=== PATIENT | male | born 1975 | race Caucasian/White ===

== ENCOUNTER 2019-09-25 13:27 | Emergency (ER) | payer MEDICAID, SELFPAY ==
[2019-09-25 13:29] VITALS: BP 125/94; PULSE 60; RESP 16; TEMP 36.9; O2SAT 97; BMI 38.2
--- NOTE | 2019-09-25 13:52 | ED.DCSUM_ITS ---
- ER Visit Summary Date of Service: 09/25/19 Chief Complaint: Back pain History of Present Illness: The patient is a 43 M with no primary care physician. He reports that 4 days ago he spent a great deal of time on his back working on a car radiator. He was in an awkward position. States that he felt fine when he did it, but he woke up the next morning with low back pain. He denies any other trauma. No fall, MVA or other change in activity. Does report that he is had similar problems with his back in the past. Patient complains of a sharp pain is 10 on 10 severity. Worsened by movement and straightening up. He is taken Motrin and Tylenol without relief. He denies any ration to his legs. No problems with his bowels or his bladder. No groin numbness. Physical Examination: Vitals: Stable. Afebrile. General: A&O x 3. NAD. Cardiovascular exam: Regular rate and rhythm, no murmur, rub or gallop. Respiratory exam: Clear to auscultation bilaterally. No wheezes or stridor. Abdominal exam: Soft, nontender, nondistended, normal bowel sounds. No peritoneal signs. Back: Diffuse moderate tenderness to palpation over the lumbar spine and the paraspinous musculature in the lumbar region. No point tenderness. Negative straight leg bilaterally. 5/5 DF, PF, EHL bilaterally. Normal sensation to light touch throughout. Extremity: No clubbing, cyanosis, or edema. Emergency Department Course and Treatment: An OARRS report was obtained which was negative. He was treated with Norflex and Toradol IM. He is given a dose of [place] p.o. He is resting more comfortably. Treatment Plan: Patient be discharged with Flexeril, naproxen, and [place]. Instructed to follow-up with Dr. Manuel Wesley in 1 week if not improving. Return to the emergency department for any worsening symptoms. Disposition: To home in improved and stable condition. Impression: 1. Low back pain, acute. This note was generated with [employer] software. It may contain incorrect words, spelling, and punctuation that were not noted in review of the chart prior to signing ED Disposition - Plan for ED Patient: Disposition: Home or Assisted Living Instructions: ED Spasm Back No Trauma Prescriptions: cycloBENZAPRine HCl [Flexeril] 10 mg PO TID PRN #20 tab PRN Reason: Muscle Spasm Prescription Printed Naproxen [Naprosyn] 500 mg PO BID #14 tab Prescription Printed Hydrocodone Bitart/Apap 5-325 [[place] 5MG-325MG] 1 tab PO Q6H PRN PRN 3 Days #10 tab PRN Reason: Pain Prescription Printed Referrals: Js Farias MD [STAFF PHYSICIAN] - 1 Week if not improving
[2019-09-25] MEDS: Orphenadrine 60 MG/2 ML Ampul IM (14:36)
[2019-09-25] MEDS: Ketorolac 60 MG/2 ML Vial IM (14:36)
[2019-09-25] MEDS: HYDROcodone Bitartrate/Apap 5/325 Tablet PO (14:36)
== END 2019-09-25 14:46 | disposition home or self-care (01) ==
LOC: ED 14:44
PROVIDERS: Emergency Provider Emergency Medicine
DX: M54.9 Dorsalgia, unspecified (principal); M54.5 Low back pain; R05 Cough; I10 Essential (primary) hypertension; F17.210 Nicotine dependence, cigarettes, uncomplicated
CPT/HCPCS: 96372; 99283

== ENCOUNTER 2019-12-08 19:17 | Emergency (ER) | payer MEDICAID, SELFPAY ==
[2019-12-08 19:18] VITALS: BP 156/78; PULSE 72; RESP 20; TEMP 36.6; O2SAT 97; BMI 38.5
[2019-12-08 19:55] VITALS: BP 128/74; PULSE 68; RESP 17; TEMP 36.6; O2SAT 95
--- NOTE | 2019-12-08 20:12 | RAD_ITS ---
STUDY: X-RAY CHEST REASON FOR EXAM: Male, 43 years old. Cough TECHNIQUE: Frontal view of the chest COMPARISON: None. FINDINGS: The lungs are clear. There are no pleural effusions. There is no pneumothorax. The heart is normal in size. The visualized osseous structures are within normal limits. RAD/Chest 1 View (Portable) IMPRESSION: No acute thoracic pathology. Electronically Signed: Frank oSrto, at 20:25 EDT Tel , Service support ,
[2019-12-08 20:30] LABS: Absolute Lymphocyte Count 2.49 X10^3/uL (0.83-4.51); Absolute Neutrophil Count 3.9 X10^3/uL (2.0-7.7); Basophil# 0.04 X10^3/uL; Basophil% 0.6 % (0-1); Eosinophil# 0.18 X10^3/uL; Eosinophils% 2.5 % (0-5); Hematocrit 40.7 % (40-54); Hemoglobin 14.3 g/dL (13.0-16.5); Lymphocyte # 2.49 X10^3/ul (4.0); Lymphocyte % 34.9 % (19-41); Mean Corp Hgb Conc 35.1 g/dL (32-36); Mean Corpuscular Hgb 32.6 pg (27.0-32.0); Mean Corpuscular Volume 92.9 fL (80-94); Mean Platelet Vol. 10.7 fl (6.2-12.0); Monocyte# 0.52 X10^3/uL; Monocyte% 7.3 % (0-10); NRBC Flagged by Analyzer 0 % (0-5); Neutrophil # 3.89 X10^3/uL (2.7-7.7); Neutrophil % 54.4 % (47-70); Platelet Count 193 K/mm3 (150-450); RBC Distribution Width CV 12.2 % (11.6-14.6); RBC Distribution Width SD 41.3 fl (35.1-43.9); Red Blood Count 4.38 M/mm3 (4.6-6.2); White Blood Count 7.1 K/mm3 (4.4-11.0)
[2019-12-08 20:31] LABS: AST(SGOT) 25 U/L (15-37); Alanine Aminotransfer ALT/SGPT 59 U/L (16-61); Albumin, Serum 3.4 g/dL (3.2-5.0); Alkaline Phosphatase 99 U/L (45-117); Anion Gap 5 (5-15); BUN 15 mg/dL (7-18); BUN/Creat Ratio 17.8 RATIO (10-20); Chloride 110 mmol/L (98-107); Creatinine, Serum 0.84 mg/dL (0.70-1.30); EST Glomerular Filtration Rate 105 mL/min (>60); Est Glom Filt Rate - Afr Amer 128 mL/min (>60); Estimated Creatinine Clearance 136.92 ml/min; Globulin 3.3 g/dL (2.2-4.2); Glucose 124 mg/dL (74-106); Potassium 3.7 mmol/L (3.5-5.1); Protein, Total 6.7 g/dL (6.4-8.2); Sodium Level 143 mmol/L (136-145)
[2019-12-08 20:38] LABS: Lactic Acid 0.7 mmol/L (0.4-1.9)
[2019-12-08 21:21] LABS: Probe Check PASS; Specimen Processing Control PASS
--- NOTE | 2019-12-08 21:32 | ED.VISSUMM ---
- ER Visit Summary Date of Service: 12/08/19 Chief Complaint: Shortness of breath and wheezing History of Present Illness: The patient is a 43 M presents with shortness of breath and wheezing that is been getting worse over the past 2 days. Patient states he feels wheezing in his chest. Patient states it is worse in the morning when he wakes up. Patient states nothing seems to improve it. Patient admits to subjective chills. Patient also admits to some rhinorrhea. Patient admits to a cough but denies any sputum production. Patient admits to general myalgias and arthralgias. Patient also admits to a headache. Patient states his stepdaughter tested positive for COVID recently. Physical Examination: Vital signs are stable. Patient is afebrile. Patient is in no acute distress. Oral mucosa is pink and moist. Neck is supple. Trachea is midline. There is no JVD noted. Heart was regular rate and rhythm. Lungs showed mild expiratory wheezing bilaterally. Abdomen is soft. Bowel sounds are normal. There is no tenderness. There is no rebound or guarding noted. Skin is warm dry. Cranial nerves II through XII are intact. There are no focal motor or sensory deficits noted. Extremities are intact. There is no calf tenderness or edema. Test Results: CBC and comprehensive metabolic profile were within normal limits. COVID test was obtained and was negative. Chest x-ray was obtained. There is no acute cardiopulmonary process. This was interpreted by the radiologist and reviewed by myself. Emergency Department Course and Treatment: Patient was given 4 puffs of an albuterol inhaler here. Patient was feeling better on reevaluation. Patient was instructed to use his inhaler as needed. Patient was instructed to follow-up with his primary care physician in 5 to 7 days. Patient understood and was agreeable with the plan. All questions were answered. Disposition: Discharge home Impression: Viral upper respiratory infection This note was generated with [employer] dictation software. It may contain incorrect words, spelling, and punctuation that were not noted in review of the chart prior to signing ED Disposition - Plan for ED Patient: Disposition: Home or Assisted Living Diagnosis: Viral upper respiratory infection Instructions: ED URI Viral Referrals: Js Farias MD [Primary Care Provider] - 5-7 Days
[2019-12-08 21:44] VITALS: BP 116/59; PULSE 74; RESP 22; O2SAT 94
== END 2019-12-08 21:45 | disposition home or self-care (01) ==
PROVIDERS: Emergency Provider Emergency Medicine; PCP Family Medicine
DX: J06.9 Acute upper respiratory infection, unspecified (principal); R06.2 Wheezing; I10 Essential (primary) hypertension; G47.33 Obstructive sleep apnea (adult) (pediatric); F17.210 Nicotine dependence, cigarettes, uncomplicated
CPT/HCPCS: 71045; 80053; 83605; 85025; 87635; 94799; 99284; U0003

== ENCOUNTER 2020-05-19 21:06 | Emergency (ER) | payer MEDICAID, SELFPAY ==
[2020-05-19 21:07] VITALS: BP 151/74; PULSE 82; RESP 16; TEMP 36.2; O2SAT 95; BMI 40.9
--- NOTE | 2020-05-19 21:41 | RAD_ITS ---
STUDY: X-RAY CHEST REASON FOR EXAM: Male, 44 years old. SOB, cough TECHNIQUE: 1 view COMPARISON: Prior chest radiograph from 12/08/2019 FINDINGS: The lungs are clear and expanded. There is no demonstrated pleural abnormality. Normal size heart. Normal mediastinum and roshni. Normal visualized pulmonary arteries. Normal visualized aortic arch and descending thoracic aorta. Normal visualized thoracic spine. Normal visualized ribs, clavicles, and shoulders. There is no demonstrated abnormality of the visualized soft tissue structures of the upper abdomen. RAD/Chest 1 View IMPRESSION: No acute cardiopulmonary findings or changes. Negative for new consolidation, focal atelectasis, cardiomegaly or pleural effusion. Electronically Signed: Kaylynn Soto MD at 21:59 EST , Service support ,
--- NOTE | 2020-05-19 21:54 | ED.VIS.GEN ---
History of Present Illness Chief Complaint: Headache Narrative: Patient presents with cough congestion, some difficulty breathing which she attributes to asthma he has myalgias and a headache, and his just tested positive for Covid. There is no fevers there is no loss of taste or smell. There is no nausea vomiting or abdominal pain no urinary symptoms. There is no neck pain or stiffness. He has no vision changes or neurological symptoms. Review of systems: All systems negative except as indicated General: Denies: Fever Eyes: Denies: Visual changes - bilaterally ENT: Denies: Rhinorrhea, Sore throat Cardiovascular: Denies: Chest pain Respiratory: Dyspnea with nonproductive cough and wheezing Gastrointestinal: Denies: Abdominal pain, Nausea, Vomiting Genitourinary: Denies: Dysuria Musculoskeletal: Myalgias Skin: Denies: Rash Neurological: Denies: He does have some headache, there is no focal weakness there is no vision changes. There is no paresthesias. Psych: Reports: negative Hematologic: Denies: Easy bruising, Easy bleeding Physical exam General: Well nourished, Well developed, he appears relatively comfortable in the bed. Head: Normocephalic, Atraumatic Eyes: Conjunctiva not pale ENT: Moist mucous membranes Neck: Supple, Nontender, No lymphadenopathy Cardiovascular: Regular rate, Regular rhythm Respiratory: No distress, he is speaking in full sentences he has no retractions he is not tachypneic. He does however have an expiratory wheezing. Abdomen: Soft, Nontender, Nondistended Back: Nontender, Normal Inspection. Negative for: CVA tenderness Extremities: Nontender, No edema Skin: Normal color, No rash Neurological: Alert, Normal Strength, Normal Sensation Psychological: Normal affect Past Medical History - Allergies and Home Meds Allergies/Adverse Reactions: Allergies No Known Allergies Allergy (Verified 05/19/20 21:09) Primary Care Physician: Js Farias MD [Primary Care Provider] - Past Medical History: - - Asthma Smoking Status: Former smoker Physical Exam Vital Signs/Narrative: Vital Signs Temp Pulse Resp BP Pulse Ox 05/19/20 21:07 97.2 F L 82 16 151/74 H 95 Diagnostic/Tx/Re-eval Chest X-Ray - ED: 1 View, Read by ED Physician, Normal, Heart, Lungs - Medical Decision Making Patient has an unremarkable x-ray. I gave him an inhaler. He appears well I told him that while he is waiting for the Covid test he needs to quarantine. ED Disposition - Plan for ED Patient: Disposition: Home or Assisted Living Diagnosis: COVID-19 virus IgG antibody test result unknown Instructions: Coronavirus Disease 2019 (COVID-19): Overview, Coronavirus Disease 2019 (COVID-19): Prevention Referrals: Js Farias MD [Primary Care Provider] - 3-5 Days
== END 2020-05-19 22:51 | disposition home or self-care (01) ==
PROVIDERS: Emergency Provider Emergency Medicine; PCP Family Medicine
DX: Z11.52 Encounter for screening for COVID-19 (principal); Z87.891 Personal history of nicotine dependence; J45.909 Unspecified asthma, uncomplicated
CPT/HCPCS: 71045; 87635; 99282; U0005; U0003

== ENCOUNTER 2020-09-14 18:35 | Emergency (ER) | payer MEDICAID, SELFPAY ==
[2020-09-14 18:37] VITALS: BP 155/81; PULSE 66; RESP 15; TEMP 36.2; O2SAT 98; BMI 39.1
[2020-09-14 20:24] LABS: Bacteria 0 SEEN /hpf (None Seen); Mucous, Urine 0 SEEN /hpf (<or=2+); Red Blood Cells-Urine 0 SEEN /hpf (0-5)
[2020-09-14] MEDS: Morphine 4 MG/ML Syringe IV (20:24)
[2020-09-14] MEDS: 0.9% Normal Saline 1,000 ML 1000 ML IV (20:24)
[2020-09-14] MEDS: Ondansetron 4 MG/2 ML Vial IV (20:24)
[2020-09-14 20:37] LABS: Absolute Neutrophil Count 7.1 X10^3/uL (2.0-7.7); Basophil# 0.06 X10^3/uL; Basophil% 0.6 % (0-1); Eosinophil# 0.17 X10^3/uL; Eosinophils% 1.6 % (0-5); Hematocrit 46.3 % (40-54); Lymphocyte % 24.4 % (19-41); Mean Corp Hgb Conc 34.6 g/dL (32-36); Mean Corpuscular Hgb 32.4 pg (27.0-32.0); Mean Corpuscular Volume 93.7 fL (80-94); Monocyte% 6.6 % (0-10); NRBC Flagged by Analyzer 0 % (0-5); Neutrophil # 7.06 X10^3/uL (2.7-7.7); Neutrophil % 66.3 % (47-70); Platelet Count 243 K/mm3 (150-450); RBC Distribution Width CV 12.6 % (11.6-14.6); RBC Distribution Width SD 43.4 fl (35.1-43.9); Red Blood Count 4.94 M/mm3 (4.6-6.2); White Blood Count 10.6 K/mm3 (4.4-11.0)
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
[2020-09-14 20:43] LABS: Color, Urine Yellow (Yellow); Glucose, Dipstick Normal (Normal); Ketone-Dipstick Negative (Negative); Leukocyte Esterase-Dipstick Negative /ul (Negative); Nitrite-Dipstick Negative (Negative); Occult Blood-Urine Negative /ul (Negative); Protein-Dipstick Negative (Negative); Urine Bilirubin Dipstick Negative (Negative); Urine Clarity Clear (Clear); Urine Urobilinogen Normal (Normal); Urine pH 6.5 (5.0 - 8.0)
[2020-09-14 20:49] LABS: Squamous Epithelial Cells - UA 0-5 SEEN /hpf (0-5); White Blood Cells 0-5 SEEN /hpf (0-5)
[2020-09-14 20:59] LABS: ALB/GLOB Ratio 1.1 RATIO (0.9-2.4); AST(SGOT) 24 U/L (15-37); Alanine Aminotransfer ALT/SGPT 51 U/L (16-61); Albumin, Serum 4.1 g/dL (3.2-5.0); Alkaline Phosphatase 114 U/L (45-117); Anion Gap 4 (5-15); BUN 10 mg/dL (7-18); Calcium,Total 9.1 mg/dL (8.5-10.1); Chloride 104 mmol/L (98-107); EST Glomerular Filtration Rate 87 mL/min (>60); Est Glom Filt Rate - Afr Amer 105 mL/min (>60); Estimated Creatinine Clearance 110.74 ml/min; Globulin 3.8 g/dL (2.2-4.2); Glucose 93 mg/dL (74-106); Potassium 3.8 mmol/L (3.5-5.1); Protein, Total 7.9 g/dL (6.4-8.2); Sodium Level 137 mmol/L (136-145)
--- NOTE | 2020-09-14 21:52 | EDS_ITS ---
HPI History of Present Illness Chief Complaint: Back Informant: patient Onset/Context/Timing Onset: Days (4) Context: Gradual Onset Injury: lifting Timing: Continuous Quality: Aching Location: Lumbar Worsened by: improves with Movement Relieved by: Nothing Associated Symptoms Associated Symptoms: Abdominal Pain; Negative for Numbness, Tingling, Radiation to Right Leg, Fever, Dysuria, Unable to Ambulate, Unable to Transfer, Urinary Retention, Urinary Incontinence, Constipation and Fecal Incontinence Narrative Narrative: Patient presents with back pain that has been getting worse over the past 4 days. Patient states he was doing some lifting of logs. Patient states he has a history of prior back injury. Patient states that his pain is gradu ally getting worse. Patient states that today he had some pain in his left flank area that radiated to his left testicle. Patient states this was worse with urination. Patient denies any nausea or vomiting. Patient denies any dysuria or hematuria. Patient denies any urinary or stool incontinence. Patient denies any saddle anesthesia. PFSH PFSH Medical History Anxiety Chronic pain CPAP (continuous positive airway pressure) dependence Depression Herniated disc Hypertension Seizures Smoker Home Medications gabapentin 800 mg PO TIDCM 12/08/19 [History Last Taken Unknown] lisinopril 5 mg PO DAILY 12/08/19 [History Last Taken Unknown] phenytoin sodium extended 100 mg PO TID 12/08/19 [History Last Taken Unknown] hydrocodone-acetaminophen 1 tab PO Q6H PRN PRN 3 Days #10 tablet 09/14/20 [Rx Last Taken Unknown] Allergy/AdvReac Type Severity Reaction Status Date / Time No Known Allergies Allergy Verified 09/14/20 18:40 Surgical History History of colonoscopy Social History Smoking Status: Former smoker ROS ROS ED Constitutional Constitutional ED: Denies chills or fever(s) Eyes Eyes: Denies blurry vision or change in vision ENT ENT ED: Denies rhinorrhea or sore throat Cardiovascular Cardiovascular: Denies chest pain or palpitations Respiratory/Chest Respiratory/Chest: Denies dyspnea or sputum Gastrointestinal Gastrointestinal: Denies nausea or vomiting Genitourinary Genitourinary ED: Denies dysuria or hematuria Musculoskeletal Musculoskeletal: Reports back pain; Denies neck pain Integumentary Denies abscess or rash Neurologic Neurologic: Denies headache(s) or weakness Allergic/Immunologic Allergic/Immunologic ED: Denies mouth swelling or urticaria EXAM Physical Exam Const Vital Signs: 09/14/20 18:37 Temperature 97.1 F L Temperature Source Temporal Pulse Rate 66 Respiratory Rate 15 Blood Pressure 155/81 H Blood Pressure Mean 105 Pulse Ox 98 Oxygen Delivery Method Room Air Positive well nourished, well developed and obese General Appearance ED: well developed Nutritional Appearance: obese Resp normal respiratory effort and clear to auscultation bilaterally Cardio regular rate and regular rhythm GI normal to inspection, nondistended, normoactive bowel sounds and soft to palpation Palpation: tender other (There is some mild left inguinal tenderness. There is no hernia noted.) Back/Spine Back/Spine Narrative: There is tenderness over the left flank, lower thoracic, and lumbar paraspinal muscles. There is no midline tenderness. There is no bony crepitance or step-off. Range of motion was limited in all motion secondary to pain. General Back: CVA tenderness left Thoracic Spine / Upper Back: paraspinal muscle tenderness left T10, T11 and T12 Lumbar Spine / Lower Back: ROM limited Neuro oriented x3 and no sensory deficits noted Sensorium / Orientation: alert Motor Exam: strength 5/5 throughout Deep Tendon Reflexes: Rt Patellar (L4): 1+, Lt Patellar (L4): 1+, Rt Ankle (S1): 1+ and Lt Ankle (S1): 1+ Deep Tendon Reflexes Back: Rt Patellar (L4): 1+, Lt Patellar (L4): 1+, Rt Ankle (S1): 1+ and Lt Ankle (S1): 1+ Psych mental status grossly normal MDM MDM MDM Narrative Medical decision making narrative: Patient was given morphine and Zofran here. Patient was given IV fluids. CBC and comprehensive metabolic profile within normal limits. Urinalysis was normal. CT scan of the abdomen and pelvis was obtained. There is no acute intra-abdominal pathology noted. Patient was advised of his findings. Patient was given a prescription for a short course of [place]. Patient was instructed use ice to the area. Patient was instructed to follow-up with his primary care physician in 5 to 7 days. Patient understood and was agreeable with the plan. All questions were answered. Lab Data Attestation: I reviewed the patient's lab results. Labs: Laboratory Results - last 24 hr 09/14/20 09/14/20 09/14/20 20:16 20:16 20:16 WBC 10.6 RBC 4.94 Hgb 16.0 Hct 46.3 MCV 93.7 MCH 32.4 H MCHC 34.6 RDW Std Deviation 43.4 RDW Coeff of [place] 12.6 Plt Count 243 MPV 10.0 Immature Gran % (Auto) 0.500 Neut % (Auto) 66.3 Lymph % (Auto) 24.4 [place] % (Auto) 6.6 Eos % (Auto) 1.6 Baso % (Auto) 0.6 Absolute Neuts (auto) 7.1 Absolute Lymphs (auto) 2.60 Nucleated RBC % 0 Sodium 137 Potassium 3.8 Chloride 104 Carbon Dioxide 29.0 Anion Gap 4 L BUN 10 Creatinine 1.00 Estim Creat Clear Calc 110.74 Est GFR (MDRD) Af Amer 105 Est GFR (MDRD) Non-Af 87 BUN/Creatinine Ratio 10.0 Glucose 93 Calcium 9.1 Total Bilirubin 0.30 AST 24 ALT 51 Alkaline Phosphatase 114 Total Protein 7.9 Albumin 4.1 Globulin 3.8 Albumin/Globulin Ratio 1.1 Urine Color Yellow Urine Clarity Clear Urine pH 6.5 Ur Specific [place] 1.010 Urine Protein Negative Urine Glucose (UA) Normal Urine Ketones Negative Urine Occult Blood Negative Urine Nitrite Negative Urine Bilirubin Negative Urine Urobilinogen Normal Ur Leukocyte Esterase Negative Urine RBC 0 SEEN Urine WBC 0-5 SEEN Ur Squamous Epith Cells 0-5 SEEN Urine Bacteria 0 SEEN Urine Mucus 0 SEEN Radiography Diagnostic Testing: Radiology Impression Abdomen/Pelvis CT 09/14/20 20:39 IMPRESSION: No definite acute or significant abnormality seen. Electronically Signed: Denver Garrett MD at 21:07 EDT , Service support , Discharge Plan Triage Chief Complaint: Back ED Provider: Eddie Levin Dx/Rx/DC Orders Clinical Impression: Acute low back pain Instructions: ED Back Exercises, Lumbar, ED Back Pain (Acute or Chronic), ED Back Sprain/Strain Prescriptions: New hydrocodone-acetaminophen [hydrocodone-acetaminophen] 1 TABLET tablet 1 tab PO Q6H PRN PRN (Reason: Pain) 3 Days Qty: 10 RF: 0 No Action phenytoin sodium extended 100 MG capsule 100 mg PO TID RF: 0 gabapentin 800 MG tablet 800 mg PO TIDCM RF: 0 lisinopril 5 MG tablet 5 mg PO DAILY RF: 0 Primary Care Provider: Js Farias Referrals: Js Farias MD [Primary Care Provider] - 3-5 Days Disposition Disposition: Home, self care
[2020-09-14 22:08] VITALS: BP 152/99; PULSE 72; RESP 14; O2SAT 98
[2020-09-14 22:24] VITALS: PULSE 68; RESP 16; O2SAT 99
== END 2020-09-14 22:25 | disposition home or self-care (01) ==
PROVIDERS: Emergency Provider Emergency Medicine; PCP Family Medicine
DX: M54.5 Low back pain (principal); E66.9 Obesity, unspecified; Z87.891 Personal history of nicotine dependence
CPT/HCPCS: 74176; 80053; 81001; 85025; 96374; 96375; 99283; J7030; A4216; J2405

== ENCOUNTER 2021-06-21 10:12 | Emergency (ER) | payer MEDICAID, SELFPAY ==
[2021-06-21 10:13] VITALS: BP 178/78; PULSE 89; RESP 18; TEMP 36.6; O2SAT 98; BMI 40.6
--- NOTE | 2021-06-21 10:34 | EKG12_ITS ---
Test Reason : DIZZINESS Blood Pressure : / mmHG Vent. Rate : 081 BPM Atrial Rate : 081 BPM P-R Int : 180 ms QRS Dur : 102 ms QT Int : 342 ms P-R-T Axes : 031 058 025 degrees QTc Int : 397 ms Normal sinus rhythm Nonspecific T wave abnormality Abnormal ECG Confirmed by DANTE GOODWIN, MARCELL ([id number]), photo editor TOMMIE ADKINS ([id number]) on 06/22/2021 9:48:54 AM Referred By: Confirmed By:MARCELL HOWELL MD
--- NOTE | 2021-06-21 10:35 | CT_ITS ---
STUDY: CT ABDOMEN AND PELVIS WITH CONTRAST REASON FOR EXAM: Male, 45 years old. Abdominal pain RADIATION DOSAGE (If Supplied By Facility): CTDIvol = ( 20.12 ) mGy, DLP = ( 1403.39 ) mGycm TECHNIQUE: Transaxial images were obtained from the dome of the diaphragm to the symphysis pubis without oral contrast. IV 100mL Isovue-[id number] was administered. Sagittal and coronal images were reconstructed. Individualized dose optimization techniques were used for this CT. COMPARISON: Comparison is made with prior study dated 09/14/2020. FINDINGS: The visualized lung bases are unremarkable. The visualized portions of the heart are within normal limits. Normal liver. Normal gallbladder and extrahepatic biliary system. There are multiple benign calcified granulomata of the spleen. Mild splenomegaly. Normal pancreas. Normal bilateral adrenal glands. Normal right kidney. Normal left kidney. Normal visualized stomach. Normal small intestine. There are scattered colonic diverticula consistent with diverticulosis. The appendix is visualized and appears normal. Normal abdominal aorta. Normal inferior vena cava. Normal retroperitoneum. Distended urinary bladder. The prostate measures 5.4 size by 4.1 cm. There is a right-sided inguinal hernia containing adipose tissue. Normal osseous structures. CT/Abdomen/Pelvis W IV Cont ONLY IMPRESSION: Mild degree of splenomegaly. Distended urinary bladder. Small right-sided inguinal hernia containing fat. Electronically Signed: Reinaldo Myers MD at 12:01 [facility] ,
--- NOTE | 2021-06-21 10:39 | NURSING ---
NO OLD EKGS
--- NOTE | 2021-06-21 10:42 | RAD_ITS ---
STUDY: X-RAY CHEST REASON FOR EXAM: Male, 45 years old. near syncope TECHNIQUE: Single AP portable view of the chest. COMPARISON: Comparison is made with prior study dated 05/19/2020. FINDINGS: EKG electrodes are seen. The lungs are clear and expanded. There is no demonstrated pleural abnormality. Normal size heart. Normal mediastinum and roshni. Normal visualized pulmonary arteries. Normal visualized aortic arch and descending thoracic aorta. Normal visualized thoracic spine. Normal visualized ribs, clavicles, and shoulders. There is no demonstrated abnormality of the visualized soft tissue structures of the upper abdomen. RAD/Chest 1 View (Portable) IMPRESSION: Normal x-ray examination of the chest. Electronically Signed: Reinaldo Myers MD at 11:23 EST ,
--- NOTE | 2021-06-21 10:43 | ED.VIS.GI ---
HPI HPI - GI History of Present Illness Chief Complaint: Dizziness Narrative Narrative: 45-year-old male presenting with multiple complaints. Patient states that since Saturday he has had worsening abdominal pain intermittently. He states with food he feels like he is bloating. This does resolve on its own. He has had this for 2 months and states that he saw his primary care physician who put him on some pill and that he does not remember the name of it. He states he does take this pill however. Patient reports that since Saturday with the worsening abdominal pain he has had a fever of 101 on Saturday. He does not report a cough but does report generalized malaise, and body aches with chills. Patient reports that he has been at work for the last couple of days and notes today he had to leave early because he felt like his muscles were cramping. He states he drinks 2 bottles of water per day usually. He reports that he is having diarrhea which is not black or bloody which has been going on for the last 2 days. He states he is not vomiting. He states that his urine is very dark. PFSH PFSH Medical History Anxiety Chronic pain CPAP (continuous positive airway pressure) dependence Depression Herniated disc Hypertension Seizures Smoker Home Medications gabapentin 800 mg PO TIDCM 12/08/19 [History Last Taken Unknown] lisinopril 5 mg PO DAILY 12/08/19 [History Last Taken Unknown] phenytoin sodium extended 100 mg PO TID 12/08/19 [History Last Taken Unknown] hydrocodone-acetaminophen 1 tab PO Q6H PRN PRN 3 Days #10 tablet 09/14/20 [Rx Last Taken Unknown] ondansetron HCl 4 mg PO Q8H PRN #14 tab 06/21/21 [Rx Last Taken Unknown] Allergy/AdvReac Type Severity Reaction Status Date / Time No Known Allergies Allergy Verified 06/21/21 10:16 Surgical History History of colonoscopy Social History Smoking Status: Current every day smoker tobacco type: cigarettes ROS ROS ED Constitutional Constitutional ED: Reports chills and fever(s); Denies sweats ENT ENT ED: Denies rhinorrhea or sore throat Cardiovascular Cardiovascular: Reports other Details: Near syncope ; Denies chest pain or palpitations Respiratory/Chest Respiratory/Chest: Denies cough or dyspnea Gastrointestinal Gastrointestinal: Reports abdominal pain and diarrhea; Denies nausea or vomiting Genitourinary Genitourinary ED: Denies dysuria or hematuria Musculoskeletal Musculoskeletal: Reports myalgias; Denies arthralgias or neck pain Integumentary Denies abscess, Abrasions or rash Neurologic Neurologic: Reports headache(s); Denies paresthesias or weakness EXAM Physical Exam Const Vital Signs: 06/21/21 10:13 06/21/21 10:49 06/21/21 10:51 Temperature 97.9 F Temperature Source Temporal Pulse Rate 89 79 Respiratory Rate 18 Respiratory Effort Normal Non-Labored Respiratory Pattern Normal Blood Pressure 178/78 H Blood Pressure Mean 111 Pulse Ox 98 Oxygen Delivery Method Room Air 06/21/21 12:01 06/21/21 14:00 Temperature 102.3 F H 100.6 F H Temperature Source Temporal Pulse Rate 83 Respiratory Rate 22 H Respiratory Effort Respiratory Pattern Blood Pressure 134/60 H Blood Pressure Mean 84 Pulse Ox 96 Oxygen Delivery Method Room Air Positive well nourished and obese General Appearance ED: NAD; Negative for pallor Nutritional Appearance: obese HEENT Reports moist mucous membranes normocephalic and atraumatic Eyes PERRL and EOMs intact bilaterally General Eye ED: Negative for pale conjunctiva or scleral icterus Resp normal respiratory effort and clear to auscultation bilaterally GI non-distended Auscultation: normoactive bowel sounds Palpation: soft Back/Spine no CVA tenderness Extremity full ROM General Extremety ED: Negative for edema or tenderness General Extremity: Negative for edema Neuro CN's II-XII intact bilaterally and no sensory deficits noted Sensorium / Orientation: alert, oriented to person, oriented to place and oriented to time Motor Exam: strength 5/5 throughout Psych mental status grossly normal and thought process normal Skin General Skin Exam: Negative for jaundice or pallor MDM MDM MDM Narrative Medical decision making narrative: Patient presenting with multiple complaints. He states he is having intermittent abdominal pain as well as diarrhea. This is worse since Saturday but he reports that he has had this for 2 months. His abdominal exam is benign but he reports that his abdomen is has generalized tenderness. He was given morphine and Zofran for this. In addition to this he is also stating that he is lightheaded and near syncopal and complaining of body cramps. I obtained an EKG which on my interpretation shows a normal sinus rhythm with a ventricular rate of 81 bpm without sign of ischemic change or dysrhythmia. Chest x-ray my interpretation shows no acute cardiopulmonary process and the radiologist does agree. CBC is within normal limits. CMP shows a mild elevation and ALT at 159, AST 82, alkaline phosphatase 126. Bilirubin is normal. Renal function and electrolytes are normal with exception of a sodium of 131. Patient was given a liter of IV fluids. Urinalysis is negative for infection. Rapid Covid testing is also negative. Patient developed a fever in the ER and I did give him a gram of Tylenol. His fever has subsided. CT of the abdomen pelvis is obtained which shows no acute abdominal process. CT of the brain was performed at the request of the patient because he states he feels confused. This is also negative. Did do a Covid PCR since patient developed a fever with a negative work-up thus far. He was pending on patient discharge. He will await the results at home. He is given Zofran for home for nausea. He is counseled on fever control. He was given return precautions. Patient's testing did come back negative for Covid after he was discharged. Impression: 1. Viral syndrome 2. Headache 3. Abdominal pain 4. Lightheadedness 5. Diarrhea Lab Data Attestation: I reviewed the patient's lab results. Labs: Laboratory Results - last 24 hr 06/21/21 06/21/21 06/21/21 10:45 10:45 11:05 WBC 7.1 RBC 4.17 L Hgb 13.9 Hct 37.6 L MCV 90.2 MCH 33.3 H MCHC 37.0 H RDW Std Deviation 39.8 RDW Coeff of Olivia 12.3 Plt Count 177 MPV 10.1 Immature Gran % (Auto) 0.700 Neut % (Auto) 77.4 H Lymph % (Auto) 14.4 L Wells % (Auto) 7.2 Eos % (Auto) 0.0 Baso % (Auto) 0.3 Absolute Neuts (auto) 5.5 Absolute Lymphs (auto) 1.02 Nucleated RBC % 0 Sodium 131 L Potassium 3.5 Chloride 99 Carbon Dioxide 27.0 Anion Gap 5 BUN 14 Creatinine 1.09 Estim Creat Clear Calc 97.74 Est GFR (MDRD) Af Amer 94 Est GFR (MDRD) Non-Af 78 BUN/Creatinine Ratio 12.8 Glucose 106 Calcium 8.3 L Total Bilirubin 0.70 AST 82 H ALT 159 H Alkaline Phosphatase 126 H Troponin I High Sens 5 Total Protein 7.4 Albumin 3.8 Globulin 3.6 Albumin/Globulin Ratio 1.1 Lipase 85 Urine Color Yellow Urine Clarity Clear Urine pH 5.0 Ur Specific [place] 1.010 Urine Protein Negative Urine Glucose (UA) Normal Urine Ketones Negative Urine Occult Blood Negative Urine Nitrite Negative Urine Bilirubin Negative Urine Urobilinogen Normal Ur Leukocyte Esterase Negative Urine RBC 0 SEEN Urine WBC 0-5 SEEN Ur Squamous Epith Cells 0-5 SEEN Urine Bacteria RARE Urine Mucus 0 SEEN COVID-19 (JERRY) 06/21/21 12:50 WBC RBC Hgb Hct MCV MCH MCHC RDW Std Deviation RDW Coeff of Olivia Plt Count MPV Immature Gran % (Auto) Neut % (Auto) Lymph % (Auto) Wells % (Auto) Eos % (Auto) Baso % (Auto) Absolute Neuts (auto) Absolute Lymphs (auto) Nucleated RBC % Sodium Potassium Chloride Carbon Dioxide Anion Gap BUN Creatinine Estim Creat Clear Calc Est GFR (MDRD) Af Amer Est GFR (MDRD) Non-Af BUN/Creatinine Ratio Glucose Calcium Total Bilirubin AST ALT Alkaline Phosphatase Troponin I High Sens Total Protein Albumin Globulin Albumin/Globulin Ratio Lipase Urine Color Urine Clarity Urine pH Ur Specific [place] Urine Protein Urine Glucose (UA) Urine Ketones Urine Occult Blood Urine Nitrite Urine Bilirubin Urine Urobilinogen Ur Leukocyte Esterase Urine RBC Urine WBC Ur Squamous Epith Cells Urine Bacteria Urine Mucus COVID-19 (JERRY) Not Detected Radiography Diagnostic Testing: Clinical Impression(s) from Imaging Studies Abdomen/Pelvis CT 06/21/21 10:35 IMPRESSION: Mild degree of splenomegaly. Distended urinary bladder. Small right-sided inguinal hernia containing fat. Electronically Signed: Reinaldo Myers MD at 12:01 EST , Chest X-Ray 06/21/21 10:42 IMPRESSION: Normal x-ray examination of the chest. Electronically Signed: Reinaldo Myers MD at 11:23 EST , Brain CT 06/21/21 10:55 IMPRESSION: Normal unenhanced CT scan of the brain. Electronically Signed: Reinaldo Myers MD at 12:02 EST , Discharge Plan Triage Chief Complaint: Dizziness ED Provider: Stevie Quintero Dx/Rx/DC Orders Instructions: ED Viral Syndrome (Adult) Prescriptions: New ondansetron HCl 4 mg tablet 4 mg PO Q8H PRN (Reason: nausea and vomiting) Qty: 14 RF: 0 No Action phenytoin sodium extended 100 MG capsule 100 mg PO TID RF: 0 gabapentin 800 MG tablet 800 mg PO TIDCM RF: 0 lisinopril 5 MG tablet 5 mg PO DAILY RF: 0 hydrocodone-acetaminophen [hydrocodone-acetaminophen] 1 TABLET tablet 1 tab PO Q6H PRN PRN (Reason: Pain) 3 Days Qty: 10 RF: 0 Primary Care Provider: Js Farias Referrals: Js Farias MD [Primary Care Provider] - Disposition Disposition: Home, Self Care Discharge Date/Time: 06/21/21 14:01
[2021-06-21] MEDS: 0.9% Normal Saline 1,000 ML 1000 ML IV (10:48)
[2021-06-21] MEDS: Ondansetron 4 MG/2 ML Vial IV (10:48)
[2021-06-21 10:49] VITALS: PULSE 79
--- NOTE | 2021-06-21 10:55 | CT_ITS ---
STUDY: CT BRAIN WITHOUT CONTRAST REASON FOR EXAM: Male, 45 years old. Confusion RADIATION DOSAGE (If Supplied By Facility): CTDIvol = ( 44.99 ) mGy, DLP = ( 796.11 ) mGycm TECHNIQUE: Transaxial CT imaging of the brain was performed without administration of intravenous contrast material. Individualized dose optimization techniques were used for this CT. COMPARISON: No relevant priors. FINDINGS: Normal soft tissue structures. Normal calvarium. Normal size ventricles and extra-axial spaces for the patient''s age. Normal white matter tracts of the cerebral hemispheres. Normal basal ganglia and thalami. Normal brainstem. Normal cerebellum. There is no intracranial hemorrhage. There are no findings of an acute ischemic infarction. There is a 1.7 cm polyp or retention cyst along the anterior inferior aspect of the right maxillary sinus. CT/Brain/Head without Contrast IMPRESSION: Normal unenhanced CT scan of the brain. Electronically Signed: Reinaldo Myers MD at 12:02 EST ,
[2021-06-21] MEDS: Morphine 4 MG/ML Syringe IV (11:10)
[2021-06-21 11:11] LABS: Mucous, Urine 0 SEEN /hpf (<or=2+); Red Blood Cells-Urine 0 SEEN /hpf (0-5)
[2021-06-21 11:14] LABS: Absolute Lymphocyte Count 1.02 X10^3/uL (0.83-4.51); Absolute Neutrophil Count 5.5 X10^3/uL (2.0-7.7); Basophil# 0.02 X10^3/uL; Basophil% 0.3 % (0-1); Hematocrit 37.6 % (40-54); Hemoglobin 13.9 g/dL (13.0-16.5); Lymphocyte # 1.02 X10^3/ul (0.83-4.51); Lymphocyte % 14.4 % (19-41); Mean Corpuscular Hgb 33.3 pg (27.0-32.0); Mean Corpuscular Volume 90.2 fL (80-94); Mean Platelet Vol. 10.1 fl (6.2-12.0); Monocyte# 0.51 X10^3/uL; Monocyte% 7.2 % (0-10); NRBC Flagged by Analyzer 0 % (0-5); Neutrophil # 5.47 X10^3/uL (2.7-7.7); Neutrophil % 77.4 % (47-70); Platelet Count 177 K/mm3 (150-450); RBC Distribution Width CV 12.3 % (11.6-14.6); RBC Distribution Width SD 39.8 fl (35.1-43.9); Red Blood Count 4.17 M/mm3 (4.6-6.2); White Blood Count 7.1 K/mm3 (4.4-11.0)
[2021-06-21 11:14] LABS: Color, Urine Yellow (Yellow); Glucose, Dipstick Normal (Normal); Ketone-Dipstick Negative (Negative); Leukocyte Esterase-Dipstick Negative /ul (Negative); Nitrite-Dipstick Negative (Negative); Occult Blood-Urine Negative /ul (Negative); Protein-Dipstick Negative (Negative); Urine Bilirubin Dipstick Negative (Negative); Urine Clarity Clear (Clear); Urine Urobilinogen Normal (Normal)
[2021-06-21 11:22] LABS: Bacteria RARE /hpf (None Seen); Squamous Epithelial Cells - UA 0-5 SEEN /hpf (0-5); White Blood Cells 0-5 SEEN /hpf (0-5)
[2021-06-21 11:27] LABS: ALB/GLOB Ratio 1.1 RATIO (0.9-2.4); AST(SGOT) 82 U/L (15-37); Alanine Aminotransfer ALT/SGPT 159 U/L (16-61); Albumin, Serum 3.8 g/dL (3.2-5.0); Alkaline Phosphatase 126 U/L (45-117); Anion Gap 5 (5-15); BUN 14 mg/dL (7-18); BUN/Creat Ratio 12.8 RATIO (10-20); Calcium,Total 8.3 mg/dL (8.5-10.1); Chloride 99 mmol/L (98-107); Creatinine, Serum 1.09 mg/dL (0.70-1.30); EST Glomerular Filtration Rate 78 mL/min (>60); Est Glom Filt Rate - Afr Amer 94 mL/min (>60); Estimated Creatinine Clearance 97.74 ml/min; Globulin 3.6 g/dL (2.2-4.2); Glucose 106 mg/dL (74-106); Lipase 85 U/L (73-393); Potassium 3.5 mmol/L (3.5-5.1); Protein, Total 7.4 g/dL (6.4-8.2); Sodium Level 131 mmol/L (136-145); Troponin-I HS 5 pg/mL (3.0-78.0)
[2021-06-21 12:01] VITALS: BP 134/60; PULSE 83; RESP 22; TEMP 39.1; O2SAT 96
[2021-06-21] MEDS: Acetaminophen 500 MG Tablet 1000 MG PO (12:37)
[2021-06-21 14:00] VITALS: TEMP 38.1
== END 2021-06-21 14:01 | disposition home or self-care (01) ==
PROVIDERS: Emergency Provider Student in an Organized Health Care Education/Training Program; PCP Family Medicine; Visit Provider Student in an Organized Health Care Education/Training Program
DX: B34.9 Viral infection, unspecified (principal); R10.9 Unspecified abdominal pain; R51.9 Headache, unspecified; I10 Essential (primary) hypertension; F17.210 Nicotine dependence, cigarettes, uncomplicated; R19.7 Diarrhea, unspecified; R68.83 Chills (without fever); R42 Dizziness and giddiness; R11.0 Nausea
CPT/HCPCS: 70450; 71045; 74177; 80053; 81001; 83690; 84484; 85025; 87426; 87635; 93005; 96361; 96374; 96375; 99284; J7030; Q9967; J2405; U0003; U0005

== ENCOUNTER 2024-11-19 15:40 | Emergency (ER) | payer BC, SELFPAY ==
[2024-11-19 15:40] VITALS: BP 134/86; PULSE 71; RESP 16; TEMP 36.7; O2SAT 94; BMI 38.5
--- NOTE | 2024-11-19 15:42 | RAD_ITS ---
PROCEDURE: KNEE 4 OR MORE VIEWS 11/19/2024 REASON FOR EXAM: PAIN SWELLING TECHNIQUE: KNEE 4 OR MORE VIEWS COMPARISON: None. FINDINGS: No acute fracture or dislocation. Alignment is anatomic. Joint spaces are well preserved. Chondrocalcinosis involving the medial and lateral menisci. Small nonspecific suprapatellar joint effusion. No aggressive osseous lesion. No marked soft tissue swelling or radiopaque foreign body. RAD/Knee 4 or More Views IMPRESSION: 1. No acute fracture or dislocation. 2. Mild knee arthrosis with chondrocalcinosis. 3. Small nonspecific suprapatellar joint effusion. Reading Location: [id number]
--- NOTE | 2024-11-19 17:44 | EX.ED.DYSGE1 ---
HPI History of Present Illness Chief Complaint: Lower Extremity Injury Narrative Narrative: Patient 48-year-old male with past medical history of anxiety, depression, hypertension, seizures who presents to the emergency department chief complaint of right knee pain. He states that this has been going on for approximately 3 weeks ago and notes that the pain is worsening prompting him to come here for further evaluation management. He denies any inciting injuries he notes that a few weeks ago his knees felt stiff he bent down and stood up and noted he was having some pain afterwards. Patient denies any fevers, denies any history of IV drug use. Patient states that he does smoke. [facility] Medical History Anxiety Depression Chronic pain CPAP (continuous positive airway pressure) dependence Hypertension Smoker Herniated disc Seizures Home Medications ?Medication ?Instructions ?Recorded ?Last Taken ?Type gabapentin 800 mg tablet 800 mg PO TIDCM 12/08/19 Unknown History lisinopril 5 mg tablet 5 mg PO DAILY 12/08/19 Unknown History phenytoin sodium extended 100 mg 100 mg PO TID 12/08/19 Unknown History capsule hydrocodone-acetaminophen 5-325mg 1 tab PO Q6H PRN PRN Pain 3 days 09/14/20 Unknown Rx 5mg-325mg #10 TABLETS ondansetron HCl 4 mg tablet 4 mg PO Q8H PRN nausea and 06/21/21 Unknown Rx vomiting #14 tabs ondansetron 4 mg disintegrating 4 mg PO Q6H PRN nausea and 11/19/24 Unknown Rx tablet vomiting #20 tabs oxycodone-acetaminophen 5 mg-325 1 tab PO Q6H PRN pain 2 days #8 11/19/24 Unknown Rx mg tablet (Endocet) tabs Allergy/AdvReac Type Severity Reaction Status Date / Time No Known Allergies Allergy Verified 11/19/24 15:41 Surgical History History of colonoscopy Social History Smoking Status: Current every day smoker tobacco type: cigarettes ROS ROS ED ROS Narrative Constitutional: Denies fevers, chills, headaches : Denies any urinary symptoms, urethral discharge Neurological: Denies numbness, wheeze, tingling Musculoskeletal: Complains of right knee pain as noted above Skin: Denies any rashes or lesions EXAM Physical Exam Narrative Exam Narrative: General: Patient was lying in bed rest comfortably did not appear to be acute distress Head: Atraumatic, normocephalic Eyes: PERRL bilaterally, EOMI blood, no conjunctival injection noted Neck: Soft, supple, trachea midline Cardiovascular: Regular rate and rhythm no murmurs gallops rubs noted Respiratory: Clear to auscultation bilaterally no rales rhonchi or wheeze noted Abdomen: Soft, nondistended, nontender to palpation Musculoskeletal: Patient's right knee is normal in appearance no overlying erythema, no appreciable joint effusion noted on exam, patient was unable to perform a straight leg raise on the right side he states that this secondary to pain Extremities: DP pulses +2/4 in the bilateral lower extremities, Neurological: Patient follow commands and that he was at [facility] year is 2024. NIH of 0 GCS 15 Skin: Warm, dry contact no rashes or lesions noted Const Vital Signs: 11/19/24 15:40 Temperature 98.1 F Temperature Source Oral Pulse Rate 71 Respiratory Rate 16 Blood Pressure 134/86 H Blood Pressure Mean 102 Pulse Ox 94 Oxygen Delivery Method Room Air MDM MDM MDM Narrative Medical decision making narrative: Patient is a 48-year-old male who presented to the emergency department chief complaint of right knee pain. On the differential diagnosis includes but not limited to partial patellar tendon rupture, meniscal injury, ligamentous injury, fracture, dislocation. Once workup is obtained reviewed he will be reevaluated. Patient's x-ray of his knee reviewed by myself by radiology which showed no acute fracture dislocation mild knee arthrosis with chondrocalcinosis. Small nonspecific suprapatellar joint effusion. On reevaluation the patient once again he states that he is still having some difficulty doing a straight leg raise therefore we will place him in a knee immobilizer and he will be encouraged to follow-up with orthopedics which he will be referred to. Patient will was advised to rotate Tylenol and I Profen [id number] he states he has been doing this and not sleeping secondary to pain therefore he was given a prescription for Endocet and Zofran. He was offered crutches he states that he does not need this. He is encouraged to return with worsening symptoms or concerns. He is agreeable to plan all question concerns answered discharged home in stable condition. Radiography Diagnostic Testing: Clinical Impression(s) from Imaging Studies Knee X-Ray 11/19/24 15:42 IMPRESSION: 1. No acute fracture or dislocation. 2. Mild knee arthrosis with chondrocalcinosis. 3. Small nonspecific suprapatellar joint effusion. Reading Location: [id number] Discharge Plan Triage Chief Complaint: Lower Extremity Injury ED Provider: Ap Hidalgo Dx/Rx/DC Orders Clinical Impression: Knee pain, right, Effusion of knee joint, Patellar tendon rupture Prescriptions: New ondansetron 4 mg tablet,disintegrating 4 mg PO Q6H PRN (Reason: nausea and vomiting) Qty: 20 0RF oxycodone-acetaminophen [Endocet] 5-325 mg tablet 1 tab PO Q6H PRN (Reason: pain) 2 Days Qty: 8 0RF No Action phenytoin sodium extended 100 MG capsule 100 mg PO TID gabapentin 800 MG tablet 800 mg PO TIDCM lisinopril 5 MG tablet 5 mg PO DAILY hydrocodone-acetaminophen [hydrocodone-acetaminophen] 1 TABLET tablet 1 tab PO Q6H PRN PRN (Reason: Pain) 3 Days Qty: 10 0RF ondansetron HCl 4 mg tablet 4 mg PO Q8H PRN (Reason: nausea and vomiting) Qty: 14 0RF Primary Care Provider: Js Farias Referrals: Js Farias MD [Primary Care Provider] - Frank Boyle MD [Med Staff - Active Staff] - Activity Restrictions/Additional Instructions: Rotate Tylenol and ibuprofen [id number] when you do this he can take some every 3 hours max dose of Tylenol in 24 hours 4000 mg max dose of ibuprofen in 24 hours 3200 mg. Use the Endocet for severe pain and ensure that you take Zofran with this both these were sent to your pharmacy. Do not operate anything under the influence of the Endocet. Follow-up with orthopedics in the outpatient setting. Ice, elevate. Your x-ray did not show any acute fractures or dislocations. Return with worsening symptoms or any concerns Print Language: Irish Disposition Disposition: Home, Self Care
[2024-11-19 19:07] VITALS: BP 140/85; PULSE 69; RESP 18; TEMP 37; O2SAT 98
== END 2024-11-19 19:10 | disposition home or self-care (01) ==
PROVIDERS: Emergency Provider Emergency Medicine; PCP Family Medicine; Visit Provider Emergency Medicine
DX: M25.461 Effusion, right knee (principal); M25.561 Pain in right knee; F41.9 Anxiety disorder, unspecified; I10 Essential (primary) hypertension; F17.210 Nicotine dependence, cigarettes, uncomplicated; Z99.89 Dependence on other enabling machines and devices; M66.269 Spontaneous rupture of extensor tendons, unspecified lower leg
CPT/HCPCS: 73564; 99283